=== PATIENT | female | born 1995 | race Caucasian/White ===

== ENCOUNTER 2017-12-21 06:05 | Emergency (ER) | payer SELFPAY ==
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
--- NOTE | 2017-12-21 09:21 | CR ---
EXAM DATE: 12/21/17 PATIENT'S AGE: 22 Patient: YIMI COHEN Facility: [place], [place] Site . Site : 1993 Study: XRay Chest [id number]/31/2018 7:21:23 AM Ordering Physician: Doctor Frias Final Report: INDICATION: sob FINDINGS: A single portable chest x-ray shows a normal cardiac silhouette. The lungs show no focal pulmonary opacities. Sharp pleural margins. No pneumothorax. IMPRESSION: No evidence of acute pulmonary abnormalities. Dictated by Tony Pascual MD @ 12/21/2017 7:33:03 AM Dictated by: Tony Pascual MD @ 12/21/2017 07:33:09 (Electronic Signature) Report Signed by Proxy. CAMILLE
== END 2017-12-21 07:56 | disposition home or self-care (01) ==
LOC: MW.ED 06:05
DX: J20.9 Acute bronchitis, unspecified (principal); F17.210 Nicotine dependence, cigarettes, uncomplicated; Z88.1 Allergy status to other antibiotic agents; Z88.2 Allergy status to sulfonamides; Z88.0 Allergy status to penicillin
CPT/HCPCS: 71045; 71045-26; 87804; 99283